=== PATIENT | male | born 1955 | race Caucasian/White ===

== ENCOUNTER → 2019-04-04 | Outpatient (CLI) | payer BC ==
[2019-04-04 18:20] LABS: CALCIUM 9.4 mg/dL (8.4-10.2); CHOLESTEROL RISK RATIO 3.8; CREATININE, serum 0.99 (0.66-1.25); POTASSIUM 4.3 mmol/L (3.4-5.0)
[2019-04-04 19:28] LABS: PSA-TOTAL 0.73 ng/mL (0-4)
== END ==
LOC: ZCOL.LAB 16:32
PROVIDERS: Family Medicine
DX: Z12.5 Encounter for screening for malignant neoplasm of prostate (principal); Z13.220 Encounter for screening for lipoid disorders; I10 Essential (primary) hypertension
CPT/HCPCS: G0103

== ENCOUNTER 2021-08-13 07:57 | Day surgery (SDC) | payer OTHER ==
[~2021-08-13] VITALS: Ht 180.3 cm; Wt 84.7 kg
[2021-08-13 09:54] VITALS: BP 132/74; PULSE 76; TEMP 97.8
[2021-08-13] MEDS ORDERED: ASPIRIN 81M81 MG/TA2 PO (10:01)
[2021-08-13] MEDS ORDERED: TRIBENZOR 5 MG PO (10:01)
[2021-08-13] MEDS ORDERED: COENZYME Q-10100 M1 PO (10:02)
[2021-08-13] MEDS ORDERED: OMEGA-3 FISH1000 MG PO (10:03)
[2021-08-13] MEDS ORDERED: GARLIC100 MG PO (10:04)
[2021-08-13] MEDS ORDERED: VITAMIND3 5000 PO ×2 (10:04→10:05)
[2021-08-13] MEDS ORDERED: NATURAL E400 IU PO (10:06)
[2021-08-13] MEDS ORDERED: TURMERIC500 MG PO (10:07)
[2021-08-13] MEDS ORDERED: INVIGOFLEX D1500 MG PO (10:07)
[2021-08-13] MEDS ORDERED: [UNRECOGNIZED DRUG - OTHER] PO (10:09)
[2021-08-13] MEDS ORDERED: PROBIOTIC-MAJOR PO (10:10)
[2021-08-13] MEDS ORDERED: VIVISCAL PO (10:11)
[2021-08-13] MEDS ORDERED: PHARMASSURE ZIN50 MG PO (10:12)
--- NOTE | 2021-08-13 10:41 | NUR ---
Called and left message for Dr. Shrestha that pt has been to radiology twice and they are not able to find the node. Requested call back for any change in orders.
[2021-08-13 12:55] VITALS: BP 127/81; PULSE 72; TEMP 97.4
[2021-08-13 13:05] VITALS: BP 129/85; PULSE 69
[2021-08-13 13:20] VITALS: BP 136/85; PULSE 71
--- NOTE | 2021-08-13 13:45 | NUR ---
1255- Pt returns from OR via cart to [facility]. Monitors on and alarms set. Call light within reach. Pt alert and oriented. Pt requests muffin and hot tea. Pt denies any nausea, reports mild pain and does not want anything for pain. updated over phone. 1305- Pt taking food and drink well. No complications noted. 1320- Discharge instructions given to pt. All questions answered to pt satisfaction. Handed to pt education material and discharge information. 1345- Pt transferred out of the hospital via wheelchair, to private vehicle driven by .
== END 2021-08-13 13:45 | disposition home or self-care (01) ==
LOC: SDCO 07:57
DX: C4A.39 Merkel cell carcinoma of other parts of face (principal); I10 Essential (primary) hypertension; J31.0 Chronic rhinitis; Z79.82 Long term (current) use of aspirin; Z79.899 Other long term (current) drug therapy
CPT/HCPCS: A9541; J1100; J1885; J2405; J2704; J3010; J7120